=== PATIENT | female | born 1995 | race Two or more races ===

== ENCOUNTER → 2019-10-11 | Outpatient (CLI) | payer OTHER | END | disposition home or self-care (01) | LOC: PRENATAL 10:00 | DX: O99.89 Other specified diseases and conditions complicating pregnancy, childbirth and the puerperium (principal); O28.3 Abnormal ultrasonic finding on antenatal screening of mother; O35.3XX0 Maternal care for (suspected) damage to fetus from viral disease in mother, not applicable or unspecified; O99.019 Anemia complicating pregnancy, unspecified trimester; Z3A.24 24 weeks gestation of pregnancy ==

== ENCOUNTER → 2020-01-09 | Outpatient (CLI) | payer OTHER | END | disposition home or self-care (01) | LOC: PRENATAL 09:30 | DX: O26.843 Uterine size-date discrepancy, third trimester (principal); O99.013 Anemia complicating pregnancy, third trimester; O36.8131 Decreased fetal movements, third trimester, fetus 1 ==

== ENCOUNTER 2022-04-24 10:13 | Outpatient (CLI) | payer OTHER | END 2022-04-24 11:25 | disposition home or self-care (01) | LOC: PRENATAL 10:13 | PROVIDERS: ATTEND Obstetrics & Gynecology Maternal & Fetal Medicine | DX: Z03.79 Encounter for other suspected maternal and fetal conditions ruled out (principal) ==

== ENCOUNTER 2022-06-03 10:38 | Outpatient (CLI) | payer OTHER | END 2022-06-03 12:20 | disposition home or self-care (01) | LOC: PRENATAL 10:38 | PROVIDERS: ATTEND Obstetrics & Gynecology Maternal & Fetal Medicine | DX: O35.0XX0 Maternal care for (suspected) central nervous system malformation in fetus, not applicable or unspecified (principal); O35.3XX0 Maternal care for (suspected) damage to fetus from viral disease in mother, not applicable or unspecified; Z3A.19 19 weeks gestation of pregnancy ==

== ENCOUNTER 2022-10-12 14:15 | Inpatient (IN) | payer OTHER ==
[~2022-10-12] VITALS: Ht 157.5 cm; Wt 68.0 kg
[2022-10-20] MEDS ORDERED: PRENATAL TABLE1 EAC1 PO (08:22)
== END 2022-10-22 12:30 | disposition home or self-care (01) | DRG 807 ==
LOC: LDR 10-20 06:45 → OB/GYN 10-20 16:36
PROVIDERS: ADMIT Obstetrics & Gynecology; ATTEND Obstetrics & Gynecology
PROC: 10E0XZZ Delivery of Products of Conception, External Approach (ICD-10-PCS; principal; 2022-10-20)
PROC: 0KQM0ZZ Repair Perineum Muscle, Open Approach (ICD-10-PCS; 2022-10-20)
PROC: 4A1HXCZ Monitoring of Products of Conception, Cardiac Rate, External Approach (ICD-10-PCS; 2022-10-20)
DX: O70.1 Second degree perineal laceration during delivery (principal); Z37.0 Single live birth; Z3A.39 39 weeks gestation of pregnancy; Z20.822 Contact with and (suspected) exposure to COVID-19